=== PATIENT | female | born 1990 | race Caucasian/White ===

== ENCOUNTER 2017-12-12 03:45 | Inpatient (IN) | payer OTHER ==
[2017-12-12] MEDS ORDERED: DEXTROSE 5%-LACTATED RINGERS 1,000 ML IV SCH (03:50)
[2017-12-12] MEDS ORDERED: METHYLERGONOVINE MALEATE 0.2 MG/1 ML AMP IM PRN (04:28)
[2017-12-12] MEDS ORDERED: oxyCODONE HCL 5 MG TABLET PO PRN (04:28)
[2017-12-12] MEDS ORDERED: BISACODYL 10 MG SUPP.RECT RC PRN (04:28)
[2017-12-12] MEDS ORDERED: BENZOCAINE 20% 57 GM BOTTLE TP PRN (04:28)
[2017-12-12] MEDS ORDERED: WITCH HAZEL 50% (TUCKS) 40 PAD/JAR PAD TP PRN (04:28)
[2017-12-12] MEDS ORDERED: BENZOCAINE 28 GM HEMORRHOIDAL OINTMENT TP PRN (04:28)
[2017-12-12] MEDS ORDERED: OXYTOCIN 20 UNITS in 0.9% NS 20 UNIT/1,000 ML INFUS.BAG IV SCH (04:30)
--- NOTE | 2017-12-12 04:39 | HP ---
Past Medical History - Primary Care Physician PCP:: Kaylee Velasquez - Admission Chief Complaint: 27 yrs 39 weeks iup brought by ambulence in active labor, onset at 1.00AM, followed by SROM at 2.40 AM History of Present Illness: pnc at [facility] h/o ABN TFT RX Levothyroxine 250 mcg daily, last taken 2 days ago as per pt otherwise course was uneventful. wt gain 18 lbs denies h/o infection, uti or std . pt states she had ppd taken during , it was neg , she refuses History Source: Patient Limitations to Obtaining History: No Limitations - Past Medical History COOK VACUUM KETTLE: No: Migraine, Seizure Cardiovascular: No: HTN Pulmonary: No: Asthma Gastrointestinal: Yes: Hemorrhoids Renal/: No: UTI ...: 6 ...Para: 3 ( in 2009. 2010, 2015 at [facility] ) ...Term: 3 ...LMP: 03/14/17 ... Weeks Gestation by Dates: 39 ...EDC by Dates: 12/19/17 ...EDC by Sono: 12/19/17 (39 weeks ) Heme/Onc: Yes: Anemia Infectious Disease: Yes: Other (denies infection) Psych: Yes: Other (denies mental health issuses) Endocrine: Yes: Hypothyroidism (s/p total thyroidectomy in 2012, currently on rx po Levothyroxine 250 mcg daily) - Past Surgical History Hx Myomectomy: No Hx Transabdominal Cerclage: No Additional Surgical History: Total Thyroidectomy 2012 - Smoking History Smoking history: Never smoked - Alcohol/Substance Use History of Substance Use: reports: None Home Medications - Allergies Allergies/Adverse Reactions: Allergies Allergy/AdvReac Type Severity Reaction Status Date / Time No Known Allergies Allergy Verified 12/12/17 04:20 - Home Medications Home Medications: Ambulatory Orders Levothyroxine [Synthroid -] 1 tab PO DAILY 12/12/17 Levothyroxine [Synthroid -] 150 mcg PO DAILY 12/12/17 Vit 108/Iron/Folic AC [ One Tablet] 1 tab PO DAILY 12/12/17 Physical Exam - Maternity Vital Signs: Selected Entries 12/12/17 03:45 Temperature 98.2 F Pulse Rate 97 H Respiratory 18 Rate Blood Pressure 122/76 Weight 215 lb Constitutional: Yes: Well Nourished, Severe Distress, Obese Eyes: Yes: WNL HENT: Yes: WNL, Normocephalic Neck: Yes: WNL Cardiovascular: Yes: WNL, Regular Rate and Rhythm Lungs: Clear to auscultation Breast(s): Yes: Other (not examined) - Abdominal Exam/OB Fundal Height: 40 Number of Fetuses: Single Presentation: Vertex Contractions: Yes Regularity: Regular Intensity: Strong Monitor Mode: External Heart Rate (range): 140 Heart Rate Location: Midline Category: I Accelerations: Uniform Decelerations: None - Vaginal Exam/OB Vaginal Bleediing: No Dilatation (cm): 8 Effacement (%): 100 Amniotic Membrane Status: Ruptured Nitrazine Test: Positive Amniotic Fluid: Yes: Clear Presentation: Vertex/Position (exam at 3.45 AM) Station: +1 - Physical Exam Musculoskeletal: Yes: WNL Extremities: Yes: WNL. No: Calf Tenderness Edema: LLE: 1+, RLE: 1+ Deep Tendon Reflex Grade: Normal +2 ...Motor Strength: WNL Psychiatric: Yes: WNL, Alert, Oriented - Labs Lab Results: Laboratory Tests 12/12/17 12/12/17 12/12/17 04:30 04:30 04:30 WBC 8.7 Hgb 10.3 L Hct 32.8 Plt Count 148 PT with INR 10.70 INR 0.95 PTT (Actin FS) 23.2 L Sodium 141 Potassium 3.9 Chloride 107 Carbon Dioxide 21 BUN 8 Creatinine 0.7 Random Glucose 117 H Urine Protein Opiates Screen Methadone Screen Barbiturate Screen Phencyclidine Screen Ur Amphetamines Screen MDMA (Ecstasy) Screen Benzodiazepines Screen Cocaine Screen U Marijuana (THC) Screen HIV 1&2 Antibody Screen HIV P24 Antigen 12/12/17 12/12/17 12/12/17 04:30 04:30 04:30 WBC Hgb Hct Plt Count PT with INR INR PTT (Actin FS) Sodium Potassium Chloride Carbon Dioxide BUN Creatinine Random Glucose Urine Protein Negative Opiates Screen Negative Methadone Screen Negative Barbiturate Screen Negative Phencyclidine Screen Negative Ur Amphetamines Screen Negative MDMA (Ecstasy) Screen Negative Benzodiazepines Screen Negative Cocaine Screen Negative U Marijuana (THC) Screen Negative HIV 1&2 Antibody Screen Negative HIV P24 Antigen Negative Problem List - Problems (1) 39 weeks gestation of Code(s): Z3A.39 - 39 WEEKS GESTATION OF (2) First stage of labor established Code(s): BFP6649 - (3) Hypothyroid in , antepartum Code(s): O99.280 - ENDO, NUTRITIONAL AND METAB DISEASES COMP PREG, UNSP TRI; E03.9 - HYPOTHYROIDISM, UNSPECIFIED (4) Obesity (BMI 30.0-34.9) Code(s): E66.9 - OBESITY, UNSPECIFIED (5) PROM with onset of labor within 24 hours, delivered, [facility] Code(s): O42.00 - SEAN ROM, ONSET LABOR W/N 24 HR OF RUPT, UNSP WEEKS OF GEST (6) with care elsewhere, antepartum Code(s): Z34.90 - ENCNTR FOR SUPRVSN OF NORMAL , UNSP, UNSP TRIMESTER Assessment/Plan 27 yrs 39 weeks admitted in active labor pt fully dilated at 3.55AM delivery vaginal 3.58 AM.followed by placenta at 4.05 AM plan pp care
[2017-12-12 04:43] VITALS: BMI 32.6
[2017-12-12 05:02] LABS: BASO % 0.1 % (0-2.0); EOS % 0.1 % (0-4.5); HEMATOCRIT 32.8 % (32.4-45.2); HEMOGLOBIN 10.3 GM/dL (10.7-15.3); LYMPH % 22.8 % (8-40); MCH 25.9 pg (25.7-33.7); MCHC 31.6 g/dl (32.0-36.0); MEAN CELL VOLUME 82.2 fl (80-96); MEAN PLT VOLUME 10.3 fl (7.5-11.1); MONO % 9.5 % (3.8-10.2); NEUT % 67.5 % (42.8-82.8); PLATELET COUNT 148 K/MM3 (134-434); RBC 3.99 M/mm3 (3.60-5.2); RDW 20.1 % (11.6-15.6); WHITE BLOOD COUNT 8.7 K/mm3 (4.0-10.0)
--- NOTE | 2017-12-12 05:02 | PN ---
Delivery - Delivery Vaginal Delivery: No Problems, Spontaneous (baby deievered vx , Debra position, immediate oral & nasal suction was done , ant shoulder delievered without difficulty. cord blood collected.Placenta delivered with membranes completely. perineum & vagina intact .) Type of Anesthesia: None Episiotomy/Laceration: None EBL (cc): 300 (cathter urine 100 ml after delivery sent for u/a & drug tox ) Delivery, Single - Stages of Labor Date 1st Stage Initiatied: 12/12/17 Time 1st Stage Initiated: 01:00 Date 2nd Stage Initiated: 12/12/17 Time 2nd Stage Initiated: 03:55 Date of Delivery: 12/12/17 Time of Delivery: 03:58 Time Placenta Delivered: 04:05 Placenta: Yes: Spontaneous, Uterine Exploration - Condition of Hardscape Foreman/Trial Justice Present: No Infant Gender: Female Weight: 8 lb Position: Left, OA Total Hours ROM (Hrs/Mins): 1h 18m - 1 Minute Total Score: 9 5 Minutes Total Score: 9 - Feeding Plan Initial Plan: Elected not to breastfeed exclusively throughout hospitalization Remarks - Remarks Remarks: 27 yrs 39 weeks brought by EMT in active labor with SROM pt came & delivered within 15 min, . gbs unknown, no time to give prophylaxis intrapartum course uneventful .
[2017-12-12] MEDS ORDERED: ACETAMINOPHEN 325 MG TABLET (FP) ONE (05:08)
[2017-12-12] MEDS ORDERED: IBUPROFEN 600 MG TABLET (FP) PO ONE (05:08)
[2017-12-12] MEDS: ACETAMINOPHEN 325 MG TABLET (FP) PO PRN ×3 (05:10→17:56)
[2017-12-12] MEDS: IBUPROFEN 600 MG TABLET (FP) PO PRN ×3 (05:10→17:56)
[2017-12-12 05:12] LABS: COCAINE, UR NEGATIVE ng/ml (CUTOFF=300); METHADONE, UR NEGATIVE ng/ml (CUTOFF=300); OPIATES, URI NEGATIVE ng/ml (CUTOFF=300); PHENCYCLIDINE,URINE NEGATIVE ng/ml (CUTOFF=25); URINE AMPHETAMINES NEGATIVE ng/ml (CUTOFF=500); URINE BARBITURATES NEGATIVE ng/ml (CUTOFF=200); URINE BENZODIAZEPINES NEGATIVE ng/ml (CUTOFF=200)
[2017-12-12 05:22] LABS: INR 0.95 (0.82-1.09); PROTHROMBIN TIME (PATIENT) 10.7 SEC (9.7-13.0)
[2017-12-12 05:24] LABS: ACTIVATED PTT 23.2 SECONDS (25.2-36.5)
[2017-12-12 05:32] LABS: URINE APPEARANCE CLEAR; URINE BILIRUBIN NEGATIVE (<2.0 mg/dL); URINE COLOR YELLOW; URINE GLUCOSE (UA) NEGATIVE (NEGATIVE); URINE KETONE TRACE (NEGATIVE); URINE LEUK ESTERASE NEGATIVE (NEGATIVE); URINE NITRITE NEGATIVE (NEGATIVE); URINE PROTEIN NEGATIVE (NEGATIVE); URINE UROBILINOGEN NEGATIVE mg/dL (0.2-1.0)
[2017-12-12 05:33] LABS: ANION GAP 13 (8-16); BLOOD UREA NITROGEN 8 mg/dL (7-18); CHLORIDE 107 mmol/L (98-107); CO2 21 mmol/L (21-32); CREATININE 0.7 mg/dL (0.55-1.02); GLUCOSE,RANDOM 117 mg/dL (74-106); POTASSIUM 3.9 mmol/L (3.5-5.1); SODIUM 141 mmol/L (136-145)
[2017-12-12 05:39] LABS: CALCIUM 6.9 mg/dL (8.5-10.1)
[2017-12-12] MEDS: LEVOTHYROXINE NA 200 MCG TABLET PO SCH (06:35)
[2017-12-12] MEDS: LEVOTHYROXINE NA 50 MCG TABLET (FP) PO SCH (06:35)
[2017-12-12] MEDS: FERROUS SO4 325 MG TABLET (FP) PO SCH ×2 (07:55→17:49)
[2017-12-12] MEDS: PRENATAL VITAMINS W/ FOLIC ACID TABLET (FP) PO SCH (10:59)
[2017-12-13] MEDS: IBUPROFEN 600 MG TABLET (FP) PO PRN ×3 (06:01→20:23)
[2017-12-13] MEDS: ACETAMINOPHEN 325 MG TABLET (FP) PO PRN ×3 (06:01→20:22)
[2017-12-13] MEDS: LEVOTHYROXINE NA 200 MCG TABLET PO SCH (06:02)
[2017-12-13] MEDS: LEVOTHYROXINE NA 50 MCG TABLET (FP) PO SCH (06:02)
--- NOTE | 2017-12-13 06:06 | PN ---
Post Progress Note - Subjective Subjective: asymptomatic Post Day: 1 Type of Delivery: Vital Signs: Vital Signs Temperature 98.2 F 12/12/17 21:11 Pulse Rate 80 12/12/17 21:11 Respiratory Rate 20 12/12/17 21:11 Blood Pressure 109/60 12/12/17 21:11 O2 Sat by Pulse Oximetry (%) 100 12/12/17 05:15 Breast Exam: Yes: Soft. No: Engorged Uterus: Yes: Fundus Firm, Fundus below umbilicus, Non-tender Lochia: Yes: Rubra Lochia, amount: Moderate Extremities: Yes: Calves non-tender Perineum: Yes: Intact - Labs Labs: CBC WBC 8.7 K/mm3 (4.0-10.0) 12/12/17 04:30 RBC 3.99 M/mm3 (3.60-5.2) 12/12/17 04:30 Hgb 10.3 GM/dL (10.7-15.3) L 12/12/17 04:30 Hct 32.8 % (32.4-45.2) 12/12/17 04:30 MCV 82.2 fl (80-96) 12/12/17 04:30 MCH 25.9 pg (25.7-33.7) 12/12/17 04:30 MCHC 31.6 g/dl (32.0-36.0) L 12/12/17 04:30 RDW 20.1 % (11.6-15.6) H 12/12/17 04:30 Plt Count 148 K/MM3 (134-434) 12/12/17 04:30 MPV 10.3 fl (7.5-11.1) 12/12/17 04:30 Absolute Neuts (auto) 5.9 # 12/12/17 04:30 Neutrophils % 67.5 % (42.8-82.8) 12/12/17 04:30 Lymphocytes % 22.8 % (8-40) 12/12/17 04:30 Monocytes % 9.5 % (3.8-10.2) 12/12/17 04:30 Eosinophils % 0.1 % (0-4.5) 12/12/17 04:30 Basophils % 0.1 % (0-2.0) 12/12/17 04:30 Nucleated RBC % 0 % (0-0) 12/12/17 04:30 Problem List - Problems (1) 39 weeks gestation of Code(s): Z3A.39 - 39 WEEKS GESTATION OF (2) First stage of labor established Code(s): EAB2963 - (3) Hypothyroid in , antepartum Code(s): O99.280 - ENDO, NUTRITIONAL AND METAB DISEASES COMP PREG, UNSP TRI; E03.9 - HYPOTHYROIDISM, UNSPECIFIED (4) Obesity (BMI 30.0-34.9) Code(s): E66.9 - OBESITY, UNSPECIFIED (5) PROM with onset of labor within 24 hours, delivered, [facility] Code(s): O42.00 - SEAN ROM, ONSET LABOR W/N 24 HR OF RUPT, UNSP WEEKS OF GEST (6) with care elsewhere, antepartum Code(s): Z34.90 - ENCNTR FOR SUPRVSN OF NORMAL , UNSP, UNSP TRIMESTER (7) Normal vaginal delivery Code(s): O80 - ENCOUNTER FOR FULL-TERM UNCOMPLICATED DELIVERY (8) Encounter for routine follow-up Code(s): Z39.2 - ENCOUNTER FOR ROUTINE FOLLOW-UP Assessment/Plan stable cbc today ct pp care
[2017-12-13 06:19] LABS: HBsAG SCREEN Negative (Negative); RUBELLA IgG ANTIBODY 2.74 index (Immune >0.99)
[2017-12-13 08:34] LABS: BASO % 0.3 % (0-2.0); HEMATOCRIT 29.3 % (32.4-45.2); HEMOGLOBIN 9.4 GM/dL (10.7-15.3); LYMPH % 35.6 % (8-40); MCH 26.2 pg (25.7-33.7); MEAN CELL VOLUME 81.8 fl (80-96); MEAN PLT VOLUME 10.3 fl (7.5-11.1); MONO % 10.5 % (3.8-10.2); NEUT % 52.6 % (42.8-82.8); PLATELET COUNT 129 K/MM3 (134-434); RBC 3.58 M/mm3 (3.60-5.2); RDW 19.8 % (11.6-15.6); WHITE BLOOD COUNT 7.2 K/mm3 (4.0-10.0)
[2017-12-13] MEDS: FERROUS SO4 325 MG TABLET (FP) PO SCH ×2 (09:08→18:36)
[2017-12-13] MEDS: PRENATAL VITAMINS W/ FOLIC ACID TABLET (FP) PO SCH (09:08)
[2017-12-13] MEDS ORDERED: SENNOSIDES/DOCUSATE COMBO (SENNA PLUS) TABLET (UD) PO PRN (22:00)
[2017-12-14] MEDS: LEVOTHYROXINE NA 50 MCG TABLET (FP) PO SCH (06:31)
[2017-12-14] MEDS: LEVOTHYROXINE NA 200 MCG TABLET PO SCH (06:31)
--- NOTE | 2017-12-14 07:33 | DS ---
Physical Exam-LAB SUPPORT SERVICE TECH Vital Signs: Vital Signs Temperature 98.0 F 12/13/17 20:33 Pulse Rate 80 12/13/17 20:33 Respiratory Rate 20 12/13/17 20:33 Blood Pressure 107/57 12/13/17 20:33 O2 Sat by Pulse Oximetry (%) 100 12/12/17 05:15 Constitutional: Yes: Well Nourished, Obese Eyes: Yes: WNL HENT: Yes: WNL Neck: Yes: WNL Cardiovascular: Yes: WNL Respiratory: Yes: WNL Gastrointestinal: Yes: WNL ...Rectal Exam: Yes: WNL Renal/: Yes: WNL ....Post : Yes: Uterus firm, Uterus non-tender, Moderate lochia rubra ( perineum intact) Breast(s): Yes: WNL (BF), Other (not engorged) Musculoskeletal: Yes: WNL Extremities: Yes: WNL. No: Calf Tenderness Edema: Yes Edema: LLE: 1+, RLE: 1+ Integumentary: Yes: WNL, Tattoos Neurological: Yes: WNL ...Motor Strength: WNL Psychiatric: Yes: WNL, Alert, Oriented Labs: CBC, BMP 12/13/17 06:20 12/12/17 04:30 Delivery - Delivery Vaginal Delivery: No Problems, Spontaneous (baby deievered vx , Debra position, immediate oral & nasal suction was done , ant shoulder delievered without difficulty. cord blood collected.Placenta delivered with membranes completely. perineum & vagina intact .) Type of Anesthesia: None Episiotomy/Laceration: None EBL (cc): 300 (cathter urine 100 ml after delivery sent for u/a & drug tox ) Delivery, Single - Stages of Labor Date 1st Stage Initiatied: 12/12/17 Time 1st Stage Initiated: 01:00 Date 2nd Stage Initiated: 12/12/17 Time 2nd Stage Initiated: 03:55 Date of Delivery: 12/12/17 Time of Delivery: 03:58 Time Placenta Delivered: 04:05 Placenta: Yes: Spontaneous, Uterine Exploration - Condition of Infant Physical Therapy Manager/Assistant Producer Present: No Infant Gender: Female Weight: 8 lb Position: Left, OA Total Hours ROM (Hrs/Mins): 1h 18m - 1 Minute Total Score: 9 5 Minutes Total Score: 9 - [place] Feeding Plan Initial Plan: Elected not to breastfeed exclusively throughout hospitalization Remarks - Remarks Remarks: 27 yrs 39 weeks brought by EMT in active labor with SROM pt came & delivered within 15 min, . gbs unknown, no time to give prophylaxis intrapartum course uneventful . pp course uneventful. anemia counselled pt will go to her clinic for pp follow up. discharge today Discharge Summary Reason For Visit: LABOR ADMIT Current Active Problems 39 weeks gestation of (Acute) Encounter for routine follow-up (Acute) First stage of labor established (Acute) Hypothyroid in , antepartum (Acute) Normal vaginal delivery (Acute) Obesity (BMI 30.0-34.9) (Acute) PROM with onset of labor within 24 hours, delivered, [facility] (Acute) with care elsewhere, antepartum (Acute) Condition: Stable - Instructions Diet, Activity, Other Instructions: Post Instructions DIET: Continue good diet high in protein, calcium, and iron rich foods. Drink at least eight (8) glasses of water daily in addition to other fluids. ct Regular diet MEDICATIONS: Continue vitamins and iron as previously directed. Motrin and Tylenol may be taken for minor discomfort. ACTIVITY: Mild to moderate exercise may be started in two (2) weeks. Take frequent rest periods. Resume normal activity after six (6) week check up. WOUND CARE OF OPERATIVE SITE: Continue use of perineal bottle until vaginal discharge stops. Keep area clean. Shower daily. Keep abdominal wound dry. Report any drainage or redness to physician. Tub baths, tampons and douches are not permitted for [address] Breast feeding & or Bottle feeding BREAST CARE: (For those that are not breast feeding): If engorgement occurs: Wear tight fitting bra. Take Tylenol or Motrin for pain. Apply cold packs (ice in bags to each breast ) FAMILY PLANNING: There are many control alternatives to pursue and they should be discussed at your first office visit. You may resume sexual activity after your six (6) week check up. (Remember, is not a contraceptive) NEXT PHYSICIAN APPOINTMENT: Be certain to call for a six (6) week appointment, unless otherwise directed. rtc to your [facility] or [address] [facility] or got to Emergency Dept if you have any of the following: Heavy vaginal bleeding Painful urination Leg pain Unusual odor noted to vaginal bleeding High fever Red streaking noted on breast Referrals: Kaylee Velasquez MD [Staff Physician] - Disposition: HOME - Home Medications Comprehensive Discharge Medication List: Ambulatory Orders Acetaminophen [Tylenol .Regular Strength -] 650 mg PO Q3H PRN tablet 12/12/17 Ibuprofen [Motrin -] 200 mg PO Q4H PRN tablet 12/12/17 Levothyroxine [Synthroid -] 1 tab PO DAILY 12/12/17 Levothyroxine [Synthroid -] 50 mcg PO DAILY@0700 tablet 12/12/17 Levothyroxine [Synthroid -] 150 mcg PO DAILY 12/12/17 Levothyroxine [Synthroid -] 200 mcg PO DAILY@0700 tablet 12/12/17 Vit 108/Iron/Folic AC [ One Tablet] 1 tab PO DAILY 12/12/17 Vitamins (Sjr) - 1 tab PO DAILY tablet 12/12/17 Ferrous Sulfate [Feosol] 325 mg PO BID #60 tablet 12/13/17
[2017-12-14] MEDS: FERROUS SO4 325 MG TABLET (FP) PO SCH (09:58)
[2017-12-14] MEDS: PRENATAL VITAMINS W/ FOLIC ACID TABLET (FP) PO SCH (09:58)
[2017-12-14 11:55] VITALS: BP 129/68; PULSE 87; TEMP 98.7
== END 2017-12-14 12:40 | disposition home or self-care (01) | DRG 560 ==
LOC: JLDR 03:45 → J3W 05:56
PROVIDERS: ADMIT Obstetrics & Gynecology; ATTEND Obstetrics & Gynecology
PROC: 10E0XZZ Delivery of Products of Conception, External Approach (ICD-10-PCS; principal; 2017-12-12)
DX: O99.284 Endocrine, nutritional and metabolic diseases complicating childbirth (principal); E03.9 Hypothyroidism, unspecified; O99.214 Obesity complicating childbirth; E66.9 Obesity, unspecified; Z68.32 Body mass index [BMI] 32.0-32.9, adult; Z3A.39 39 weeks gestation of pregnancy; O42.02 Full-term premature rupture of membranes, onset of labor within 24 hours of rupture; Z37.0 Single live birth
CPT/HCPCS: 36415; 59409; 80048; 80307; 81003; 85025; 85610; 85730; 86593; 86762; 86850; 86900; 86901; 87340; 87389